=== PATIENT | male | born 1960 | race African-American/Black ===

== ENCOUNTER 2021-12-09 15:36 | Emergency (ER) | payer OTHER ==
[~2021-12-09] VITALS: Ht 182.9 cm; Wt 61.2 kg
--- NOTE | 2021-12-09 15:40 | NUR ---
Pt.was seen by pt.was updated with condition and plan of care.
[2021-12-09] MEDS ORDERED: IV NORMAL SALINE 1000 ML BAG IV ONE (15:45)
[2021-12-09 16:33] LABS: HEMATOCRIT 41.9 % (36.7-47.1); MEAN CORPUSCULAR HEMOGLOBIN 29.1 uug (23.8-33.4); MEAN CORPUSCULAR VOLUME 88.9 fL (73.0-96.2); PLATELET COUNT (AUTO) 256 K/uL (152-348)
[2021-12-09 16:53] LABS: CARBON DIOXIDE 23 mmol/L (21-32); CHLORIDE 104 mmol/L (98-107); CREATININE 1.3 mg/dL (0.6-1.3); GLUCOSE 82 mg/dL (74-106); UREA NITROGEN, BLOOD 22 mg/dL (7-18)
[2021-12-09 17:02] LABS: ALANINE AMINOTRANSFERASE 15 U/L (16-63); ALKALINE PHOSPHATASE 79 U/L (50-136); ASPARTATE AMINOTRANSFERASE 15 U/L (15-37); BILIRUBIN,DIRECT 0.2 mg/dL (0.0-0.2); BILIRUBIN,TOTAL 0.8 mg/dL (0.2-1.0); TOTAL PROTEIN, SERUM 7.4 g/dL (6.4-8.2)
--- NOTE | 2021-12-09 17:57 | NUR ---
Pt.watching TV no s/s of acute distress.
[2021-12-09] MEDS ORDERED: ASPIRIN 81 MG TAB.CHEW PO ONE (19:00)
[2021-12-09] MEDS ORDERED: ASPIRIN 81 MG TAB.CHEW ONE (19:17)
[2021-12-09 20:08] LABS: *BLOOD, URINE NEGATIVE (NEGATIVE); *CLARITY,URINE CLEAR (CLEAR); *COLOR,URINE YELLOW (YELLOW); *KETONES,URINE 3+ (NEGATIVE); LEUKOCYTE ESTERASE ,URINE NEGATIVE (NEGATIVE); NITRITE, URINE NEGATIVE (NEGATIVE); PH,URINE 5.5 (5.0-8.0); UGLUCOSE NEGATIVE (NEGATIVE)
[2021-12-09 20:16] LABS: *BILIRUBIN,URIN 2+ (NEGATIVE)
--- NOTE | 2021-12-09 20:24 | NUR ---
[facility] called back. Patient will go to [facility] under the care of Dr Mortensen
[2021-12-09 20:29] LABS: BACTERIA,URINE NONE SEEN /HPF (NONE SEEN); RBC,URINE 0-3 /HPF (0-3); SQUAMOUS EPITHELIAL CELL,UR NONE SEEN /HPF (NONE SEEN); WBC,URINE 0-3 /HPF (0-3)
--- NOTE | 2021-12-09 20:40 | NUR ---
Patient Tranfers to outside Facility Physician: Dr Mortensen Location: [facility]
== END 2021-12-09 20:40 | disposition short-term general hospital (02) ==
LOC: ER 15:36
DX: I21.4 Non-ST elevation (NSTEMI) myocardial infarction (principal); E86.0 Dehydration; I95.1 Orthostatic hypotension; Z20.822 Contact with and (suspected) exposure to COVID-19; I45.10 Unspecified right bundle-branch block; E78.5 Hyperlipidemia, unspecified; E03.9 Hypothyroidism, unspecified; Z85.71 Personal history of Hodgkin lymphoma; Z85.46 Personal history of malignant neoplasm of prostate
CPT/HCPCS: 36415; 71045; 80048; 80076; 81001; 83605; 84484 ×3; 85025; 86850; 86900; 86901; 87040 ×2; 87426; 93005; 96360; 99285; J7040; A4663

== ENCOUNTER 2022-01-16 15:30 | Emergency (ER) | payer OTHER ==
[~2022-01-16] VITALS: Ht 182.9 cm; Wt 64.0 kg
[2022-01-16 16:09] LABS: HEMATOCRIT 37.1 % (36.7-47.1); MEAN CORPUSCULAR HEMOGLOBIN 29.6 uug (23.8-33.4); MEAN CORPUSCULAR VOLUME 88.9 fL (73.0-96.2); PLATELET COUNT (AUTO) 251 K/uL (152-348)
[2022-01-16 16:18] LABS: CARBON DIOXIDE 30 mmol/L (21-32); GLUCOSE 92 mg/dL (74-106); UREA NITROGEN, BLOOD 24 mg/dL (7-18)
[2022-01-16 16:20] LABS: CHLORIDE 106 mmol/L (98-107); POTASSIUM 4.1 mmol/L (3.5-5.1)
[2022-01-16] MEDS ORDERED: IV NORMAL SALINE 500 ML BAG IV ONE (16:45)
[2022-01-16 18:43] LABS: *BILIRUBIN,URIN NEGATIVE (NEGATIVE); *BLOOD, URINE NEGATIVE (NEGATIVE); *CLARITY,URINE CLEAR (CLEAR); *COLOR,URINE YELLOW (YELLOW); *KETONES,URINE TRACE (NEGATIVE); *UROBILINOGEN,URINE 0.2 E.U./dl (NORMAL); LEUKOCYTE ESTERASE ,URINE NEGATIVE (NEGATIVE); NITRITE, URINE NEGATIVE (NEGATIVE); UGLUCOSE NEGATIVE (NEGATIVE)
--- NOTE | 2022-01-16 19:08 | NUR ---
Patient is resting comfortably on gurney, pending disposition@this time, nursing SBAR to JUWAN Rodriguez.
[2022-01-16] MEDS ORDERED: hydrALAZINE HCL 25 MG TABLET PO ONE (19:15)
[2022-01-16] MEDS ORDERED: hydrALAZINE HCL 25 MG TABLET ONE (19:32)
[2022-01-16] MEDS ORDERED: CLONIDINE HCL 0.2 MG TABLET PO ONE (20:15)
[2022-01-16] MEDS ORDERED: CLONIDINE HCL 0.2 MG TABLET ONE (20:15)
--- NOTE | 2022-01-16 21:10 | NUR ---
a taxi was called for the pt, will await taxi and assist pt to the taxi. a voucher was provided.
--- NOTE | 2022-01-16 21:31 | NUR ---
call placed to [facility] to check on eta they state it should be 30 minutes.
--- NOTE | 2022-01-16 21:50 | NUR ---
Patient discharged to home in stable condition. Written and verbal after care instructions given. Patient verbalizes understanding of instructions. Stressed follow up or return to ER for worsening s/s.
[2022-01-16 21:51] VITALS: BP 151/90
== END 2022-01-16 21:52 | disposition home or self-care (01) ==
LOC: ER 15:30
DX: R53.1 Weakness (principal); Z20.822 Contact with and (suspected) exposure to COVID-19; R94.31 Abnormal electrocardiogram [ECG] [EKG]; E03.9 Hypothyroidism, unspecified; E78.5 Hyperlipidemia, unspecified; Z85.46 Personal history of malignant neoplasm of prostate; G20 Parkinson's disease; C81.90 Hodgkin lymphoma, unspecified, unspecified site; R26.89 Other abnormalities of gait and mobility
CPT/HCPCS: 36415; 71045; 84484; 85025; 93005; A4663; J7040